=== PATIENT | male | born 1945 | race Caucasian/White ===

== ENCOUNTER 2019-05-12 04:31 | Emergency (ER) | payer MEDICARE, OTHER ==
[~2019-05-12] VITALS: Ht 167.6 cm; Wt 102.1 kg
[~2019-05-12 04:31] MED LIST: ANTACID168 MG PO; ASPIR-LOW81 MG PO; ASPIRIN EC81 MG; DILTIAZEM ER180 MG; DILTIAZEM ER180 MG PO; DILTIAZEM ER240 MG PO; RYTHMOL150 MG PO; RYTHMOL225 MG
[2019-05-12] MEDS ORDERED: METOPROLOL SUCC25 MG PO (04:58)
== END 2019-05-12 05:06 | disposition home or self-care (01) ==
LOC: ED 04:31
DX: Z53.21 Procedure and treatment not carried out due to patient leaving prior to being seen by health care provider (principal)

== ENCOUNTER 2020-04-10 21:29 | Emergency (ER) | payer MEDICARE, OTHER ==
[~2020-04-10] VITALS: Ht 167.6 cm; Wt 97.5 kg
[~2020-04-10 21:29] MED LIST changes: +METOPROLOL SUCC25 MG PO
[2020-04-10] MEDS ORDERED: ELIQUIS5 MG PO (21:54)
--- NOTE | 2020-04-11 18:34 | EKG ---
[facility] [address] [facility] [place], [place] [address] Signed Normal sinus rhythm Cannot rule out Anterior infarct , age undetermined Abnormal ECG No previous ECGs available Confirmed by ANI CHATMAN MD ([id number]) on 04/11/2020 6:34:42 PM Electronically Signed By: ANI CHATMAN MD 04/11/20 1834 PATIENT NAME: CRISTINO RODRIGUEZ VALERI Electrocardiogram DATE OF : 47 PHYSICIAN: ANI CHATMAN MD REPORT #: [id number] REPORT IS CONFIDENTIAL AND NOT TO BE RELEASED WITHOUT AUTHORIZATION
== END 2020-04-11 01:00 | disposition home or self-care (01) ==
LOC: ED 21:29
DX: R07.89 Other chest pain (principal); Z88.0 Allergy status to penicillin; Z79.899 Other long term (current) drug therapy
CPT/HCPCS: 71045; 80053; 83735; 84484; 85025; 93005; 93010; 99285-25

== ENCOUNTER 2020-05-10 21:46 | Emergency (ER) | payer MEDICARE, OTHER ==
[~2020-05-10] VITALS: Ht 167.6 cm; Wt 97.5 kg
[~2020-05-10 21:46] MED LIST changes: +ELIQUIS5 MG PO
--- OUTSIDE RECORDS SUMMARY | 2020-05-10 21:48 | XMS ---
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 Kimberly has no Care Guidelines for this patient. Agatha VISIT COUNT (12 MO.) [address] [facility] TOTAL 3 NOTE: Visits indicate total known visits. ED/C VISIT TRACKING (12 MO.) 05/10/2020 21:46 [facility] [facility] [place] TYPE: Emergency COMPLAINT: - CHEST PAIN 04/10/2020 21:29 [facility] TYPE: Emergency COMPLAINT: - CHEST PAIN DIAGNOSES: - Allergy status to penicillin - Other penitentiary (current) drug therapy - Other chest pain 05/12/2019 04:32 [facility] [place] TYPE: Emergency COMPLAINT: - BLOOD PRESSURE CONCERN DIAGNOSES: - Procedure and treatment not carried out due to patient leaving prior to being seen by health care provider INPATIENT VISIT TRACKING (12 MO.) No inpatient visits to display in this time frame [id number]
[2020-05-11] MEDS ORDERED: PROTONIX40 MG PO (01:36)
--- NOTE | 2020-05-11 13:44 | EKG ---
[facility] [address] [facility] [place], [place] [address] Signed Normal sinus rhythm Normal ECG When compared with ECG of 10-APR-2020 21:37, No significant change was found Confirmed by DESTINY BOSS DO ([id number]) on 05/11/2020 1:44:08 PM Electronically Signed By: DESTINY BOSS DO 05/11/20 1344 PATIENT NAME: FAUSTINA RODRIGUEZNA TRAMMELL Electrocardiogram DATE OF : 47 PHYSICIAN: DESTINY BOSS DO REPORT #: [id number] REPORT IS CONFIDENTIAL AND NOT TO BE RELEASED WITHOUT AUTHORIZATION
== END 2020-05-11 01:52 | disposition home or self-care (01) ==
LOC: ED 21:46
DX: K44.9 Diaphragmatic hernia without obstruction or gangrene (principal); Z88.0 Allergy status to penicillin; Z79.899 Other long term (current) drug therapy
CPT/HCPCS: 71045; 74177; 80053; 83690; 83735; 84484; 85025; 85610; 85730; 93005; 93010; 99285-25; J1170; J2405; Q9967

== ENCOUNTER 2024-08-17 19:26 | Emergency (ER) | payer MEDICARE, OTHER ==
[~2024-08-17] VITALS: Ht 167.6 cm; Wt 96.7 kg
[~2024-08-17 19:26] MED LIST changes: +CEFDINIR300 MG PO; +MACROBID 100 M100 MG PO; +PROTONIX40 MG PO; +VAZALORE81 MG PO
[2024-08-17 22:11] LABS: BILIRUBIN, URINE NEGATIVE (negative); BLOOD/HGB, URINE MODERATE (Negative); KETONE, URINE SMALL (Negative); LEUK ESTERASE, URINE SMALL (negative); NITRITE, URINE NEGATIVE (negative); PH, URINE 5.5 (5-7)
[2024-08-17 22:19] LABS: BACTERIA, URINE 3+ /hpf (negative); CASTS, URINE NONE SEEN \\lpf; CRYSTALS, URINE NONE SEEN (0-1+); EPITHELIAL CELLS, URINE SQUAMOUS 1+ /lpf (0-1+); WHITE BLOOD CELLS, URINE 21-40 /HPF (0-5)
[2024-08-17 22:20] LABS: COLLECTION TYPE, URINE CLEAN CATCH; REFLEX CULTURE, URINE Yes (No)
[2024-08-17] MEDS ORDERED: NITROFURANTOIN MONOHYD MACROCR 100 MG HOME.PACK PO ONE (22:45)
[2024-08-17 23:06] VITALS: BP 131/64
== END 2024-08-17 23:06 | disposition home or self-care (01) ==
LOC: ED 19:26
PROVIDERS: Internal Medicine
DX: N39.0 Urinary tract infection, site not specified (principal); R51.9 Headache, unspecified; I10 Essential (primary) hypertension; I48.91 Unspecified atrial fibrillation; Z87.440 Personal history of urinary (tract) infections; Z88.0 Allergy status to penicillin; Z79.01 Long term (current) use of anticoagulants; Z79.899 Other long term (current) drug therapy
CPT/HCPCS: 81001; 87088; 99283